=== PATIENT | female | born 2000 | race Caucasian/White ===

== ENCOUNTER → 2020-08-28 14:55 | Outpatient (CLI) | payer OTHER, SELFPAY ==
[2020-08-28 16:08] LABS: Alanine Aminotransferase 10 IU/L (<35); Albumin 3.7 g/dL (3.5-5.0); Albumin Globulin Ratio 1.4 (1.0-2.8); Alkaline Phosphatase 56 U/L (38-126); Aspartate Aminotransferase 19 IU/L (14-36); BUN Creatinine Ratio 17.4 (6-22); Bilirubin Total 0.2 mg/dL (0.2-1.3); Blood Urea Nitrogen 8 mg/dL (7-17); Calcium 8.7 mg/dL (8.4-10.2); Carbon Dioxide 23 mmol/L (22-32); Chloride 106 mmol/L (98-107); Estimated Glomerular Filt Rate > 60.0 mL/min (>60); Globulin 2.7 g/dL (1.7-4.1); Glucose 84 mg/dL (70-100); HEMOLYSIS < 15 (0-50); Potassium 3.7 mmol/L (3.4-5.1); Sodium 135 mmol/L (137-145); Total Protein 6.4 g/dL (6.3-8.2)
[2020-08-31 20:08] LABS: Estriol, Free 1.99 ng/mL (.); Inhibin A, Dimeric 72.55 pg/mL (.); Inhibin A, MoM 0.41 (.); Maternal Ethnicity Caucasian (.); Maternal Weight 136 lbs (.); Number of Fetuses No (.); OSBR Risk 1 IN 10000 (.); Results Report (.); Test Results *Screen Negative* (.); hCG, MoM 0.23 (.); hCG, Serum 6930 mIU/mL (.)
== END ==
PROVIDERS: Referring Provider Obstetrics & Gynecology; Visit Provider Obstetrics & Gynecology
DX: Z34.82 Encounter for supervision of other normal pregnancy, second trimester (principal); R76.8 Other specified abnormal immunological findings in serum; Z3A.18 18 weeks gestation of pregnancy
CPT/HCPCS: 36415; 80053; 82105; 82677; 84702; 86336

== ENCOUNTER → 2020-09-11 09:40 | Outpatient (CLI) | payer OTHER, SELFPAY ==
--- NOTE | 2020-09-11 09:41 | DI.US.S_ITS ---
PROCEDURE: US OB >= 14 WEEKS FETUS INDICATIONS: 20 week OB US OUTSIDE/PRIOR DATING DATA: Last menstrual period (LMP): 04/24/2020. LMP-based estimated date of delivery (KATHLEEN): 01/29/2021 . First dating scan (date and location): 09/11/2020 . Estimated date of delivery (KATHLEEN) from first dating scan: 01/28/2021 . TECHNIQUE: Real-time scanning was performed of the fetus, with image documentation and biometric measurements. Endovaginal scanning: No COMPARISON: [facility], US, US OB >= 14 WEEKS FETUS, 08/04/2020, 17:09. FINDINGS: General: A single living intrauterine gestation is present. Presentation: Vertex. Placenta: Placental position is posterior , without previa. Amniotic fluid index: 11.7 cm, normal range is 5-24 cm. heart rate: 131 beats per minute. Maternal cervical canal: 3.7 cm long. Normal lower limit is 2.5 cm. biometrics: Biparietal diameter: 20 weeks 1 day Head circumference: 19 weeks 6 days Abdominal circumference: 20 weeks 3 days Femur length: 20 weeks 3 days Estimated gestational age from initial scan: N/a Composite gestational age from present scan: 20 weeks 1 day Estimated weight and percentile: 330 g; 57th percentile Measurement variability for biometric dating: +/- 7 days from 14 weeks to 15 weeks 6 days gestation, +/- 10 days from 16 weeks to 21 weeks 6 days gestation, +/- 2 weeks from 22 weeks to 27 weeks 6 days gestation, +/- 3 weeks for 28 weeks gestation or later. weight reference: 4500 g or EFW >90/95% is considered macrosomia or large for gestational age. EFW <10% is small for gestational age. EFW 5% or less is considered intra-uterine growth restriction. Anatomic survey: Neuro: Ventricles are non-dilated at less than 10 mm. Cisterna magna is normal at 3-11 mm. Cerebellum is normal in size and morphology. Nuchal skin fold: Normal at less than 6 mm between 14-21 weeks gestational age. Face: Nose and lips, facial profile are normal. Spine: No evidence for spina bifida. Heart: 4-chambered heart is present, with normal ventricular outflow tracts. Diaphragm: Diaphragm is intact. Stomach: Left-sided stomach is present. Kidneys: No hydronephrosis. Normal is less than 5 mm in 2nd trimester, less than 7 mm in 3rd trimester. Cord: 3-vessel cord has orthotopic insertion. Bladder: Normal in size. Extremities: All 4 extremities identified. IMPRESSION: 1. Single living IUP present with composite gestational age of 20 weeks 1 day corresponding to ultrasound KATHLEEN of 01/28/2021. 2. Normal anatomic survey. Dictated by: Angel BROWN Interpreted: Elvi Sanchez MD on 09/11/2020 at 11:08 Approved by: Elvi Sanchez M.D. on 09/11/2020 at 12:38
== END ==
PROVIDERS: Referring Provider Obstetrics & Gynecology; Visit Provider Obstetrics & Gynecology
DX: Z34.92 Encounter for supervision of normal pregnancy, unspecified, second trimester (principal); Z3A.20 20 weeks gestation of pregnancy
CPT/HCPCS: 76811

== ENCOUNTER → 2020-10-27 16:27 | Outpatient (CLI) | payer OTHER, SELFPAY ==
[2020-10-27 18:15] LABS: Hemoglobin 11.2 g/dL (12.0-16.0)
[2020-10-27 18:23] LABS: Alanine Aminotransferase 12 IU/L (<35); Albumin 3.6 g/dL (3.5-5.0); Albumin Globulin Ratio 1.2 (1.0-2.8); Alkaline Phosphatase 70 U/L (38-126); Aspartate Aminotransferase 21 IU/L (14-36); BUN Creatinine Ratio 23.8 (6-22); Bilirubin Total 0.1 mg/dL (0.2-1.3); Blood Urea Nitrogen 10 mg/dL (7-17); Carbon Dioxide 22 mmol/L (22-32); Chloride 106 mmol/L (98-107); Estimated Glomerular Filt Rate > 60.0 mL/min (>60); GTT (PREG) 1 Hour PP 50gm Dose 75 mg/dL (76-139); Globulin 2.9 g/dL (1.7-4.1); Glucose 75 mg/dL (70-100); HEMOLYSIS < 15 (0-50); Potassium 3.6 mmol/L (3.4-5.1); Sodium 135 mmol/L (137-145); Total Protein 6.5 g/dL (6.3-8.2)
== END ==
PROVIDERS: Referring Provider Obstetrics & Gynecology; Visit Provider Obstetrics & Gynecology
DX: Z34.03 Encounter for supervision of normal first pregnancy, third trimester (principal); R76.8 Other specified abnormal immunological findings in serum; Z3A.26 26 weeks gestation of pregnancy
CPT/HCPCS: 36415; 80053; 82950; 85014; 85018; 87522

== ENCOUNTER → 2020-11-23 10:39 | Outpatient (CLI) | payer OTHER, SELFPAY ==
--- NOTE | 2020-11-23 10:40 | DI.US.S_ITS ---
PROCEDURE: US OB LIMITED INDICATIONS: SGA OUTSIDE/PRIOR DATING DATA: Last menstrual period (LMP): April 24, 2020. LMP-based estimated date of delivery (KATHLEEN): January 29, 2021. First dating scan (date and location): September 11, [address] [facility]. Estimated date of delivery (KATHLEEN) from first dating scan: January 28, 2021. TECHNIQUE: Real-time scanning was performed of the fetus, with image documentation and biometric measurements. Biophysical profile was also obtained. Endovaginal scanning: For 4 COMPARISON: [facility], OB >= 14 WEEKS FETUS, 11/16/2020, 10:47. [facility], OB >= 14 WEEKS FETUS, 09/11/2020, 10:04. FINDINGS: General: A single living intrauterine gestation is present. Presentation: Vertex Placenta: Placental position is posterior, without previa. Amniotic fluid index: 19.6 cm, normal range is 5-24 cm. heart rate: 149 beats per minute. Maternal cervical canal: Closed and 3.2 cm long. Normal lower limit is 2.5 cm. biometrics: Biparietal diameter: 32 weeks 2 days Head circumference: 31 weeks 1 day Abdominal circumference: 25 weeks 1 day Femur length: 29 weeks 9 days Estimated gestational age from initial scan: 30 weeks 4 days. Composite gestational age from present scan: 30 weeks 3 days Estimated weight and percentile: 1429 grams, 13th percentile Measurement variability for biometric dating: +/- 7 days from 14 weeks to 15 weeks 6 days gestation, +/- 10 days from 16 weeks to 21 weeks 6 days gestation, +/- 2 weeks from 22 weeks to 27 weeks 6 days gestation, +/- 3 weeks for 28 weeks gestation or later. weight reference: 4500 g or EFW >90/95% is considered macrosomia or large for gestational age. EFW <10% is small for gestational age. EFW 5% or less is considered intra-uterine growth restriction. IMPRESSION: 1. Single living intrauterine gestation. 2. Ultrasound estimated gestational age on current study 30 weeks 3 days with expected age based on initial ultrasound of 30 weeks 4 days. 2. Estimated weight 129 grams corresponding to 13th percentile for gestational age. Dictated by: Apple Caballero MD, PhD on 11/23/2020 at 17:00 Approved by: Apple Caballero MD, PhD on 11/23/2020 at 17:04
== END ==
PROVIDERS: Referring Provider Obstetrics & Gynecology; Visit Provider Obstetrics & Gynecology
DX: Z36.4 Encounter for antenatal screening for fetal growth retardation (principal); Z3A.30 30 weeks gestation of pregnancy
CPT/HCPCS: 76815

== ENCOUNTER → 2020-12-16 10:58 | Outpatient (CLI) | payer OTHER, SELFPAY ==
[2020-12-16 11:35] LABS: Appearance Urine UA CLOUDY; Bilirubin Urine UA NEGATIVE (NEGATIVE); Color Urine UA YELLOW; Glucose Urine UA NEGATIVE (Negative); Ketones Urine UA NEGATIVE (NEGATIVE); Leukocyte Esterase Urine UA TRACE (NEGATIVE); Nitrite Urine UA NEGATIVE (Negative); Occult Blood Urine UA NEGATIVE (Negative); Protein Urine UA NEGATIVE (Negative)
[2020-12-16 11:37] LABS: Bacteria Urine None Seen; RBC Urine None Seen (0-5/HPF); WBC Urine None Seen (0-5/HPF); pH Urine UA 7.5 (4.5-8.0)
[2020-12-16 11:40] LABS: Amorphous Sediment Urine 1+; Squamous Epithelial Cell Urine 5-10 /HPF (0-5/HPF)
== END ==
PROVIDERS: Referring Provider Obstetrics & Gynecology; Visit Provider Obstetrics & Gynecology
DX: N39.0 Urinary tract infection, site not specified (principal)
CPT/HCPCS: 81003; 81015

== ENCOUNTER → 2020-12-22 10:21 | Outpatient (CLI) | payer OTHER, SELFPAY | PROVIDERS: Visit Provider Obstetrics & Gynecology | DX: Z34.03 Encounter for supervision of normal first pregnancy, third trimester (principal); R39.9 Unspecified symptoms and signs involving the genitourinary system; Z3A.34 34 weeks gestation of pregnancy | CPT/HCPCS: 87086 ==

== ENCOUNTER → 2021-01-05 11:50 | Outpatient (CLI) | payer OTHER, SELFPAY ==
[2021-01-06 10:29] LABS: Strep Grp B PCR NEG for Grp B Strep
== END ==
PROVIDERS: Visit Provider Obstetrics & Gynecology
DX: Z34.03 Encounter for supervision of normal first pregnancy, third trimester (principal); Z3A.36 36 weeks gestation of pregnancy
CPT/HCPCS: 87653

== ENCOUNTER 2021-01-18 12:09 | Outpatient (CLI) | payer OTHER, SELFPAY ==
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
== END 2021-01-18 12:40 | disposition home or self-care (01) ==
LOC: LABOR 12:27 → OB 01-20 15:06
PROVIDERS: Referring Provider Obstetrics & Gynecology; Visit Provider Obstetrics & Gynecology
DX: O36.8330 Maternal care for abnormalities of the fetal heart rate or rhythm, third trimester, not applicable or unspecified (principal); Z3A.38 38 weeks gestation of pregnancy
CPT/HCPCS: 59025; G0378; G0379

== ENCOUNTER 2021-01-28 18:29 | Observation (INO) | payer OTHER, SELFPAY | END 2021-01-28 21:00 | disposition home or self-care (01) | LOC: LABOR 18:32 | PROVIDERS: Admitting Provider Specialist; Referring Provider Specialist; Visit Provider Specialist | DX: O48.0 Post-term pregnancy (principal); Z3A.40 40 weeks gestation of pregnancy | CPT/HCPCS: G0378; G0379 ==

== ENCOUNTER 2021-01-29 09:35 | Inpatient (IN) | payer OTHER, SELFPAY ==
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
[2021-01-29] MEDS: LACTATED RINGERS 1,000 ML 100 ML IV ×3 (10:50→21:58)
[2021-01-29] MEDS: OXYTOCIN PREMIX 30 UNIT/500 ML PLAST..BAG IV (11:07)
[2021-01-29 11:33] LABS: Add Manual Diff / Slide Review NO; Basophils Absolute Auto 0 /uL (0-100); Basophils Percent Auto 0.6 % (0-2); Eosinophils Absolute Auto 100 /uL (0-450); Eosinophils Percent Auto 0.8 % (2-4); Hematocrit 33.9 % (36-46); Hemoglobin 11.9 g/dL (12.0-16.0); Lymphocytes Absolute Auto 1400 /uL (1100-4500); Lymphocytes Percent Auto 15.4 % (25-40); Mean Corpuscular Hemoglobin 31.5 PG (26-34); Mean Corpuscular Volume 90.1 fL (80-100); Monocytes Absolute Auto 800 /uL (0-900); Monocytes Percent Auto 8.4 % (3-14); Neutrophils Absolute Auto 6700 /uL (1500-7000); Neutrophils Percent Auto 74.8 % (50-75); Platelet Count 259 X10^3/uL (150-400); Red Blood Cell Count 3.76 X10^6/uL (4.0-5.2); Red Cell Distribution Width 12.9 % (11.6-14.8)
[2021-01-29 12:46] LABS: COVID19 - ADMIT (NP swab/PCR) Negative (Negative)
--- NOTE | 2021-01-29 17:35 | PM.OBPNLAB ---
Date/Time Date Patient Seen: 01/29/21 Time Patient Seen: 17:35 Pain Control Comments: Discomfort increasing with contractions Pelvic Exam Effacement (%): 80 station: 0 Amniotic membrane status: Ruptured Comments: 1.5cm dilated After informed consent, AROM performed with production of clear fluid. Contractions Monitor mode: External Pitocin rate (mU/min): 13 Contraction frequency (min): 2 Contraction duration (min): 1 Contraction pattern: Regular Status status: Category l Heart Rate Baseline: 115 Monitor Accelerations: Present Monitor Decelerations: Absent Monitor Variability: Moderate Assessment and Plan Comments: 20yo at 40w0d here for elective IOL, however EFW has been declining with significant fundal height discrepancy. complicated by Hepatitis C antibody positive with negative quanti. AROM performed with production of clear fluid. GBS negative, Rh positive. - Expectant management, anticipate - FHT reassuring - GBS negative, no prophylaxis indicated - Epidural for pain control when desired - Continue pitocin, titrate as tolerated
--- NOTE | 2021-01-29 22:26 | PM.AN.REGBLK ---
Regional Block Pre-procedure Procedure: Continuous Lumbar Epidural for L&D Attending OB provider: Almaz Lange PMH/ROS narrative: Hx: No personal or family history of anesthesia problems. PSH/Anesthesia history narrative: none Exam narrative: MP2, RRR, CTAB ASA Class: II Labs: Hct 33.9 % (36-46) L 01/29/21 10:50 Plt Count 259 X10^3/uL (150-400) 01/29/21 10:50 Medications: Current Medications Generic Name Dose Route Start Last Admin Trade Name Freq PRN Reason Stop Dose Admin Calcium Carbonate 1,000 mg 01/29/21 10:29 Calcium Carbonate 500 Mg Tab PO Q2HR PRN Dyspepsia Carboprost Tromethamine 250 mcg 01/29/21 10:29 Carboprost 250 Mcg/Ml Ampul IM Q90M PRN Bleeding Fentanyl 50 mcg 01/29/21 10:29 Fentanyl 100 Mcg/2 Ml Inj IV Q1H PRN Pain, Moderate (4-6) Lactated Ringer's 1,000 mls @ 100 mls/hr 01/29/21 10:30 01/29/21 21:58 Lactated Ringers IV 100 mls/hr CONT BRITNEY Administration Oxytocin/Lactated Ringer's 30 unit in 500 mls @ 200 mls/hr 01/29/21 10:29 Oxytocin Premix IV CONT PRN Bleeding Protocol Tranexamic Acid 1,000 mg/ 100 mls @ 200 mls/hr 01/29/21 10:29 Sodium Chloride IV NOW PRN Bleeding Oxytocin/Lactated Ringer's 30 unit in 500 mls @ 3 mls/hr 01/29/21 10:30 01/29/21 11:07 Oxytocin Premix IV 3 milliunit/min TITRATE BRITNEY 3 mls/hr Administration Protocol 3 MILLIUNIT/MIN Methylergonovine Maleate 0.2 mg 01/29/21 10:29 Methylergonovine 0.2 Mg Tablet PO Q6HR PRN Heavy Bleeding Methylergonovine Maleate 0.2 mg 01/29/21 10:29 Methylergonovine 0.2 Mg/Ml Vial IM NOW PRN Bleeding Misoprostol 800 mcg 01/29/21 10:29 Misoprostol 200 Mcg Tablet VT NOW PRN Bleeding Misoprostol 1,000 mcg 01/29/21 10:29 Misoprostol 200 Mcg Tablet VT NOW PRN Bleeding Misoprostol 400 mcg 01/29/21 10:29 Misoprostol 200 Mcg Tablet SL NOW PRN Bleeding Naloxone HCl 0.2 mg 01/29/21 10:29 Naloxone 0.4 Mg/Ml Vial IV Q2MIN PRN Opiate Reversal Ondansetron HCl 4 mg 01/29/21 10:29 Ondansetron 4 Mg/2 Ml Inj IV Q4HR PRN Nausea And Vomiting Oxytocin 10 unit 01/29/21 10:29 Oxytocin 10 Unit/Ml Vial IM NOW PRN Bleeding Allergies: Allergies Allergy/AdvReac Type Severity Reaction Status Date / Time Latex, Natural Rubber Allergy Intermediate Urticaria Verified 08/04/20 13:55 nickel Allergy Intermediate Rash Verified 08/04/20 13:55 Procedure Insertion date: 01/29/21 Insertion time: 22:15 Prep/Local: betadine x3 (chloroprep) and 1% lidocaine Interspace: L2-3 Patient position: sitting Needle: 18 gauge Hustead Loss of resistance with: saline NATALIE at (cm): 6 Catheter placed at SKIN (cm): 10 Catheter in SPACE (cm): 4 Insertion: Yes CSF Initial Medications TEST DOSE time: 22:16 TEST DOSE: 1.5% lidocaine with epinephrine 1:200k (mL): 5 BOLUS DOSE time: 22:17 BOLUS DOSE (mL): 2 BOLUS DOSE med: other (10mcg fentanyl intrathecally, 90mcg fentanyl via epidural catheter) Infusion INFUSION: 0.0625% bupivacaine and with fentanyl 2 mcg/mL Initial rate (mL/hr): 12 Subsequent interventions: 2258: called to patient bedside with complaint of pain only on the left. Two patient boluses given with no relief. Good pain control on the right. MD bolus given 10mL bupivicaine 0.25% with 100mcg fentanyl. Complete relief obtained. RN states patient is now ~8cm dilated. Love being placed. Post-procedure Anesthesia time START: 21:58 Anesthesia time END: 01:38 Post-procedure Anesthesia Assessment: No Anesthesia complications
--- NOTE | 2021-01-30 02:04 | P.PCNOB_ITS ---
Labor & Delivery Delivery date: 01/30/21 Intrapartal Events: None Cervical ripening method: none Induction method: per pitocin protocol Delivery augmentation: rupture of membranes Delivery monitor: external FHT Route of delivery: Episiotomy description: None L&D Laceration Description: Labial Delivery repair: chromic (3-O) Estimated blood loss (mL): 25 Anesthesia Type: Epidural Complications: None Narrative: PROCEDURE: at 40w0d presented for elective IOL and was admitted to Labor and Delivery. The patient progressed through the 1st stage over 7 hours. She received pitocin for induction, which was titrated to a maximum of 13mU. AROM was performed with production of clear fluid. Pain was controlled with an epidural. The tracing was Category II with intermittent variable decelerations. The patient progressed through the 2nd stage over 2 hours and delivered a viable male with APGARs 8/9 at 1:38 via without complications. The baby was delivered to maternal abdomen, and the cord clamped and cut after it stopped pulsating. The perineum and vagina were inspected with bilateral labial lacerations repaired with 3-O Chromic. PREPROCEDURE DIAGNOSIS: Intrauterine at 40w0d Hepatitis C antibody positive GBS negative RH positive POSTPROCEDURE DIAGNOSIS: Intrauterine at 40w1d, delivered Same as preprocedure [place] Baby 1: Infant gender: Male Presentation: vertex Position: Left Occiput Anterior Placenta delivery description: Spontaneous Cord Vessel Description: 3 Vessels and Around Body x1 weight: 6 lb 12.326 oz Plan for aftercare: Routine care
[2021-01-30] MEDS: PRENATAL VIT,CALC/IRON/FOLIC 1 TABLET 1 TAB PO (09:54)
[2021-01-30] MEDS: DOCUSATE 100 MG CAPSULE PO (09:54)
[2021-01-30] MEDS: DERMOPLAST SPRAY 20% 60 ML 1 SPRAY TOP (09:54)
[2021-01-30] MEDS: ACETAMINOPHEN 325 MG TABLET 650 MG PO ×2 (09:55→20:49)
[2021-01-30] MEDS: IBUPROFEN 600 MG TABLET PO ×2 (09:55→20:49)
--- NOTE | 2021-01-31 07:11 | PM.OBDS.1 ---
Discharge Providers Provider Date of admission: 01/29/21 09:35 Discharge Date: 01/31/21 Primary care physician: Sakshi Juarez MD Consults: 01/31/21 02:03 Consult to Clinic Charge Nurse Routine Comment: Discharge provider: Almaz Lange MD Summary Hospital Course Date Patient Seen: 01/31/21 Time Patient Seen: 07:00 Diagnoses: 40w1d gestation Hepatitis C antibody positive GBS negative Rh positive Hospital Course: The patient presented for induction of labor. She received Pitocin and AROM was performed with clear fluid present. She had an epidural for pain control. The patient progressed to complete and had a spontaneous vaginal delivery of a viable baby boy a without complications. Bilateral labial lacerations were then repaired. The patient tolerated delivery well. , there were no complications. At the time of discharge she was voiding, ambulating, and passing flatus without difficulty. Her lochia was decreasing appropriately. Her pain was adequately controlled. She was bottle feeding and pumping for baby. She plans on control pills for contraception. She will follow-up in clinic in 4 weeks for her check as they are moving to [place] in 1 month. Peripartum Data Delivery Method: Natural Vaginal Laceration Description: Labial Episiotomy description: None Procedures: Spontaneous vaginal delivery complications: none 1: Gender: Male Disposition of : home Discharge Diagnosis (1) Spontaneous vaginal delivery: Status: Acute Status at Discharge Cognitive/behavioral status at discharge: oriented Functional status at discharge: independent ambulation Overall status at discharge: patient is progressing back to baseline Time Spent with Patient Time attestation: Total time spent providing and/or coordinating discharge services: Objective Labs Result Diagrams: 01/29/21 10:50 Exam Narrative Exam Narrative: Gen: NAD, sitting comfortably in bed, appears well CV: RRR, no murmurs Resp: clear to auscultation bilaterally Abd: soft, appropriately tender, fundus firm and below the umbilicus, nondistended Ext: no edema Discharge Plan Discharge Plan Patient Disposition: Home Discharge orders & Medications Prescriptions: Continued prenat.vits,glenda,[id number] Tablet 1 tab PO DAILY RF: 0 Follow up/Referrals: Sakshi Jaurez MD [Primary Care Provider] - Almaz Lange MD [Physician] - 6 Weeks (Call MD with any questions or concerns. To make and appointment with Dr Lange before leaving state) Diet/Activity/Treatments Diet: Diet as Tolerated and Regular Skin/Wound/Dressing Care Report to your healthcare provider any signs of infection, such as:: chills, fever, increased pain and unusual drainage Visit Report/Discharge Packet Instructions: DI for Labor and Delivery, Vaginal Stand Alone Forms: Discharge: Care Visit Report Forms: Patient Portal/API, Stroke Signs & Symptoms Discharge Data Primary Care Provider: Sakshi Juarez
[2021-01-31 07:53] VITALS: BP 117/74; PULSE 78; RESP 18; TEMP 36.7
== END 2021-01-31 10:30 | disposition home or self-care (01) | DRG 807 ==
PROVIDERS: Admitting Provider Family Medicine; PCP Obstetrics & Gynecology; Referring Provider Family Medicine; Visit Provider Family Medicine
DX: O48.0 Post-term pregnancy (principal); Z37.0 Single live birth; Z3A.40 40 weeks gestation of pregnancy; O99.891 Other specified diseases and conditions complicating pregnancy; Z22.8 Carrier of other infectious diseases; Z20.822 Contact with and (suspected) exposure to COVID-19; O76 Abnormality in fetal heart rate and rhythm complicating labor and delivery; O69.81X0 Labor and delivery complicated by cord around neck, without compression, not applicable or unspecified
CPT/HCPCS: 01967; 36415; 59050; 59400; 59409; 85025; 86850; 86900; 86901; 87635; C9803; G0379; J2590